=== PATIENT | female | born 1970 | race Caucasian/White ===

== ENCOUNTER 2017-09-27 10:41 | Emergency (ER) | payer OTHER, MEDICARE ==
[~2017-09-27] VITALS: Ht 147.3 cm; Wt 62.1 kg
[~2017-09-27 10:41] MED LIST: FLUOXETINE HCL20 M3 PO; KEPPRA750 M1 PO; OXCARBAZEPINE300 M1 PO; OXYCODONE-ACET1 EAC1 PO; REGLAN10 M1 PO; ZOFRAN ODT4 M1 SL
[2017-09-27 12:11] LABS: ABSOLUTE BASOPHIL COUNT 0.1 /CUMM (0.0-0.2); ABSOLUTE EOSINOPHIL COUNT 0 /CUMM (0.0-0.7); ABSOLUTE GRANULOCYTE CT 9.1 /CUMM (1.4-6.5); ABSOLUTE LYMPH COUNT 2.6 /CUMM (1.2-3.4); ABSOLUTE MONOCYTE COUNT 0.7 /CUMM (0.10-0.60); BASOPHIL % 0.4 % (0.0-2.0); EOSINOPHIL % 0.1 % (0-5); GRANULOCYTE % 72.9 % (42.2-75.2); HEMATOCRIT 44.9 % (37-47); MEAN CORPUSCULAR HGB CONC 33.4 G/DL (33.0-37.0); MEAN CORPUSCULAR VOLUME 89.9 FL (81.0-99.0); MEAN PLATELET VOLUME 8.5 FL (7.4-10.4); PLATELET COUNT 340 /CUMM (130-400); RBC DISTRIBUTION WIDTH 14.6 % (11.5-14.5); WHITE BLOOD CELL COUNT 12.6 /CUMM (4.8-10.8)
--- NOTE | 2017-09-27 12:16 | ED GI/GU/ABDOMINAL COMPLAINT ---
History of Present Illness General Chief Complaint: Abdominal Pain/Flank Pain Stated Complaint: ABD PAIN HX COLITIS Source: patient Exam Limitations: no limitations Vital Signs & Intake/Output Vital Signs & Intake/Output Vital Signs Date Time Temp Pulse Resp B/P B/P Pulse O2 O2 Flow FiO2 Mean Ox Delivery Rate 09/27 1503 98.6 75 20 138/80 98 Room Air 09/27 1244 98.5 90 20 140/80 98 Room Air 09/27 1050 95.9 123 20 145/89 99 Room Air Allergies Coded Allergies: ibuprofen (Severe, THROAT CLOSURE, HIVES 04/09/17) metoclopramide (From REGLAN) (Severe, ANGIODEMA 09/27/17) cephalexin (From KEFLEX) (Intermediate, RASH, SWELLING 09/27/17) venom-honey bee (Intermediate, HIVES - HORNETS 09/27/17) amoxicillin (ANGIODEMA 09/27/17) mushroom (THROAT CLOSURE 09/27/17) venom-wasp (UNKNOWN 04/09/17) Reconcile Medications Duloxetine HCl 30 MG CAPSULE.DR 1 CAP PO DAILY MIGRAINES (Reported) Levetiracetam (Keppra) 750 MG TABLET 1 TAB PO BID SEIZURES (Reported) Methocarbamol (Robaxin-750) 750 MG TABLET 1 TAB PO QHS MUSCLE SPASMS ( Reported) Metronidazole (Flagyl) 500 MG TABLET 1 TAB PO BID colitis Ondansetron (Ondansetron Odt) 4 MG TAB.RAPDIS 1 TAB SL BID PRN N/V (Reported) Ondansetron (Zofran Odt) 4 MG TAB.RAPDIS 1 TAB SL TID nausea Oxcarbazepine 300 MG TABLET 1.5 TAB PO BID SEIZURES (Reported) Oxycodone HCl/Acetaminophen (Oxycodone-Acetaminophen 10-325) 10 MG-325 MG TABLET 1 TAB PO Q4-6H PRN PAIN -MAX OF 5 TABS A DAY (Reported) Oxycodone HCl/Acetaminophen (Percocet 5-325 MG Tablet) 5 MG-325 MG TABLET 1 TAB PO BID Pain Triage Note: C/O LOWER ABDOMINAL PAIN WITH NAUSEA, VOMITING AND DIARREA X 7D DAYS. PMH: COLITIS Triage Nurses Notes Reviewed? yes ? N Is pt currently ? No HPI: 46-year-old female presents emergency department complaining of lower abdominal pain. Symptoms started about 1 week ago. She has been having watery, nonbloody diarrhea. She has been having frequent bouts per day. States it is starting to be mucus colored. Patient does report a history of ulcerative colitis diagnosed last year. She has had a previous cholecystectomy and appendectomy. She has not had any fevers or chills. She has been nauseous and has had decreased intake secondary to the nausea. She denies any associated chest pain or shortness of breath. No sick contacts at home. No recent travel. No recent antibiotic use. She has an appointment with her GI doctor scheduled for the of this month. Patient also has a seizure history but has been taking her medications as prescribed and denies any current seizure activity. No EtOH use. (Timothy Huynh PA-C) Past History Travel History Traveled to [place] past 21 day No Medical History Any Pertinent Medical History? none Neurological: migraine, seizure, fibromialgia Cardiovascular: NONE Gastrointestinal: colitis, irritable bowel syndrome Musculoskeletal: degen joint disease, fibromyalgia Blood Disorders: NONE Cancer(s): NONE HEALTH EDUCATION AIDE/Reproductive: NONE Surgical History Surgical History: non-contributory Psychosocial History Who do you live with Spouse Services at Home None What is your primary language Urdu Tobacco Use: Quit >30 days ago ETOH Use: occasional use Family History Hx Contributory? No (Timothy Huynh PA-C) Review of Systems Review of Systems Constitutional: Reports: see HPI. EENTM: Reports: no symptoms. Respiratory: Reports: no symptoms. Cardiovascular: Reports: no symptoms. GI: Reports: see HPI. Genitourinary: Reports: no symptoms. Musculoskeletal: Reports: no symptoms. Skin: Reports: no symptoms. Neurological/Psychological: Reports: no symptoms. All Other Systems: Reviewed and Negative (Timothy Huynh PA-C) Physical Exam Physical Exam General Appearance: well developed/nourished, mild distress Head: atraumatic, normal appearance Eyes: Bilateral: normal appearance. Ears, Nose, Throat, Mouth: moist mucous membrane Neck: supple Respiratory: normal breath sounds, no respiratory distress, quiet respiration Cardiovascular: regular rate/rhythm Gastrointestinal: BS normal, soft, mild TTP b/l lower quadrants without rebound or guarding. Non distended, no masses, no organomegaly. No rashes. Extremities: normal range of motion Skin: intact, normal color, warm/dry Core Measures ACS in differential dx? No Sepsis Present: No Sepsis Focused Exam Completed? No (Lino SEGOVIA,Timothy) Progress Differential Diagnosis: biliary colic, bowel obstruction, diverticulitis, ectopic , endometritis, gastritis, hemorrhoids, ischemic bowel, inflamm bowel dis, kidney stone, ovarian cyst, ovarian torsion, pancreatitis, PID/ cervicitis, SBO, UTI/pyelo Plan of Care: Orders Procedure Date/time Status URINALYSIS 09/27 115 Complete LIPASE 09/27 115 Complete COMPREHENSIVE METABOLIC PANEL 09/27 115 Complete CBC WITHOUT DIFFERENTIAL 09/27 115 Complete Laboratory Tests 09/27/17 1255: Urinalysis LIGHT H, Urine Color PATRICIO, Urine Clarity HAZY H, Urine pH 6.0, Ur Specific [place] 1.025, Urine Protein 100 H, Urine Ketones >=80, Urine Nitrite NEG, Urine Bilirubin POS@ICTO H, Urine Urobilinogen 1.0, Ur Leukocyte Esterase NEG, Ur Microscopic SEDIMENT EXAMINED, Urine RBC 1-3, Urine WBC 3-5 H, Ur Epithelial Cells MANY H, Urine Bacteria MOD H, Hyaline Casts 1-3 H, Urine Mucus MANY H, Urine Hemoglobin TRACE-INTACT, Urine Glucose NEG 09/27/17 1150: Anion Gap 15, Estimated GFR > 60, BUN/Creatinine Ratio 16.3, Glucose 94, Calcium 10.2, Total Bilirubin 0.8, AST 34, ALT 41, Alkaline Phosphatase 96, Total Protein 8.3 H, Albumin 4.9, Globulin 3.4, Albumin/Globulin Ratio 1.4, Lipase 730 H, CBC w Diff NO MAN DIFF REQ, RBC 5.00, MCV 89.9, MCH 30.0, MCHC 33.4, RDW 14.6 H, MPV 8.5, Gran % 72.9, Lymphocytes % 20.9, Monocytes % 5.7, Eosinophils % 0.1, Basophils % 0.4, Absolute Granulocytes 9.1 H, Absolute Lymphocytes 2.6, Absolute Monocytes 0.7 H, Absolute Eosinophils 0, Absolute Basophils 0.1 Diagnostic Imaging: Viewed by Me: CT Scan. Discussed w/RAD: CT Scan. Radiology Impression: PATIENT: ALEC MCKENNA PRESENT AGE: 46 PATIENT ACCOUNT NO: [id number] : 70 LOCATION: ER ORDERING PHYSICIAN: Timothy Huynh PA-C SERVICE DATE: 09/27/17-1213 EXAM TYPE: CAT - CT ABD & PELVIS W IV CONTRAST EXAMINATION: CT ABDOMEN AND PELVIS WITH CONTRAST CLINICAL INFORMATION: Diffuse abdominal pain, rebound, guarding COMPARISON: CT 08/27/2017 TECHNIQUE: Multidetector volumetric imaging was performed of the abdomen and pelvis following IV administration of 95 mL of Optiray 320 intravenous contrast. Sagittal and coronal reformatted images were obtained on the technologist's workstation. DLP: 251 mGy-cm FINDINGS: LUNG BASES: The visualized lung bases are unremarkable. LIVER, GALLBLADDER, AND BILIARY TREE: The liver enhances homogeneously. Stable small hypodense lesion within segment 4A of the liver measuring 9 mm most consistent with a cyst. Gallbladder is surgically absent. PANCREAS: Unremarkable. SPLEEN: Unremarkable. ADRENAL GLANDS: Unremarkable. KIDNEYS AND URETERS: The kidneys are normal in size, shape, and attenuation. No hydronephrosis, hydroureter, or calculi seen. No perinephric stranding. BLADDER: Unremarkable. GASTROINTESTINAL TRACT: A surgical anastomosis is identified in the right lower quadrant, possibly from previous appendectomy. There are no dilated loops of small or large bowel. No intra-abdominal free air or free fluid. ABDOMINAL WALL: No significant hernia is appreciated. LYMPH NODES : Normal. VASCULAR: Unremarkable. PELVIC VISCERA: Uterus appears surgically absent. No adnexal masses. Small follicles are present within both ovaries. A hypodense structure within the right ovary measures 8 mm. These are within normal limits. OSSEOUS STRUCTURES: No acute findings. IMPRESSION: 1. No acute intra-abdominal or pelvic findings. 2. Stable postsurgical changes in the right lower quadrant. 3. Status post cholecystectomy. DICTATED BY: Pam Andres MD DATE/TIME DICTATED:09/27/171439 TEST DRILLER:NOÉ DATE/TIME TRANSCRIBED:09/27/171439 CONFIDENTIAL, DO NOT COPY WITHOUT APPROPRIATE AUTHORIZATION. <Electronically signed in Other Vendor System> SIGNED BY: Pam Andres MD 09/27/17 3087 Initial ED EKG: none Comments: Patient is a well-appearing 46-year-old female who is presenting with bilateral lower quadrant abdominal pain for the past week associated with diarrhea and nausea. Diarrhea is nonbloody. She does have a history of ulcerative colitis and is scheduled to see her GI doctor later this month her symptoms have been acting up. On my exam she does have mild tenderness to palpation in the bilateral lower quadrants. Left is worse than right. She otherwise appears well on exam. She is afebrile. Her lab work is overall nonactionable, slightly elevated lipase. Urinalysis not indicative of infection. She has no epigastric pain to palpation. She has had her gallbladder removed and appendix removed. She does not use EtOH. Her CT scan showed no acute findings. I have low concern for pancreatitis, appendicitis, choledocholithiasis, SBO. Patient was hydrated with IV fluids. She was given IV Tylenol, morphine and Zofran with significant relief of her symptoms. We will start her on Flagyl to cover for infection, short course of Percocet for breakthrough pain and Zofran for nausea. Encourage her to follow-up with her GI doctor this week. Return to emergency department immediately if she develops any new or worsening symptoms. She is in agreement with plan of care. (Lino SEGOVIA,Timothy) Departure Departure Time of Disposition: 1507 Disposition: HOME OR SELF CARE Condition: Stable Clinical Impression Primary Impression: Abdominal pain Secondary Impressions: Nausea Referrals: Erick PINK,Naomy Kovacs (PCP/Family) Additional Instructions: Take Percocet sparingly as needed for pain. Use Zofran as needed for nausea and vomiting. Eat a bland diet for at least 48 hours. Drink plenty of fluids. Follow up with your GI doctor and PCP this week. Return to ED with new or worsening symptoms. Please go over all results of today's visit with your primary care doctor. Contact your primary care doctor to let them know you were here in the emergency room. There may be nonspecific findings which may not be related to your visit today here in the emergency room but may require further evaluation and chronic monitoring by your primary care doctor. If you had a laceration today the chance of foreign body always remains. You should follow-up with your primary care doctor for recheck in 3-5 days for a wound check. If you had an x-ray done there is a chance that a fracture could have been missed on initial read and you should follow-up with your primary care doctor for repeat x-rays if symptoms persist. If your blood pressure was elevated here in the emergency room please have rechecked by [facility] primary care doctor within the next 48. If you were prescribed a narcotic here in the emergency room or any type of controlled substances you're not allowed to drive while taking this medication or operate any type of heavy machinery. Narcotics can make you feel lightheaded dizziness nausea and can cause constipation. You may need to picking supervisor a stool softener. Thank you for choosing [facility] emergency room. Please return to the emergency room immediately if you have any other concerns worsening of symptoms. Departure Forms: Customer Survey General Discharge Information Prescriptions: Current Visit Scripts Metronidazole (Flagyl) 1 TAB PO BID #14 TAB Ondansetron (Zofran Odt) 1 TAB SL TID #15 TAB Oxycodone HCl/Acetaminophen (Percocet 5-325 MG Tablet) 1 TAB PO BID #10 TAB (Timothy Huynh PA-C) PA/DRY BOX OPERATOR Co-Sign Statement Statement: ED Attending supervision documentation- [X] I saw and evaluated the patient. I have also reviewed all the pertinent lab results and diagnostic results. I agree with the findings and the plan of care as documented in the PA's/DRY BOX OPERATOR's documentation. [X] I have reviewed the ED Record and agree with the PA's/DRY BOX OPERATOR's documentation. [] Additions or exceptions (if any) to the PAs/DRY BOX OPERATOR's note and plan are summarized below: [] (Edwin PINK,Varinder Goncalves)
[2017-09-27] MEDS ORDERED: ROBAXIN-750750 M1 PO (13:18)
[2017-09-27] MEDS ORDERED: DULOXETINE HCL30 MG PO (13:18)
[2017-09-27] MEDS ORDERED: ONDANSETRON ODT4 M1 SL (13:20)
--- NOTE | 2017-09-27 14:50 | CT SCAN REPORT ---
EXAMINATION: CT ABDOMEN AND PELVIS WITH CONTRAST CLINICAL INFORMATION: Diffuse abdominal pain, rebound, guarding COMPARISON: CT 08/27/2017 TECHNIQUE: Multidetector volumetric imaging was performed of the abdomen and pelvis following IV administration of 95 mL of Optiray 320 intravenous contrast. Sagittal and coronal reformatted images were obtained on the technologist's workstation. DLP: 251 mGy-cm FINDINGS: LUNG BASES: The visualized lung bases are unremarkable. LIVER, GALLBLADDER, AND BILIARY TREE: The liver enhances homogeneously. Stable small hypodense lesion within segment 4A of the liver measuring 9 mm most consistent with a cyst. Gallbladder is surgically absent. PANCREAS: Unremarkable. SPLEEN: Unremarkable. ADRENAL GLANDS: Unremarkable. KIDNEYS AND URETERS: The kidneys are normal in size, shape, and attenuation. No hydronephrosis, hydroureter, or calculi seen. No perinephric stranding. BLADDER: Unremarkable. GASTROINTESTINAL TRACT: A surgical anastomosis is identified in the right lower quadrant, possibly from previous appendectomy. There are no dilated loops of small or large bowel. No intra-abdominal free air or free fluid. ABDOMINAL WALL: No significant hernia is appreciated. LYMPH NODES: Normal. VASCULAR: Unremarkable. PELVIC VISCERA: Uterus appears surgically absent. No adnexal masses. Small follicles are present within both ovaries. A hypodense structure within the right ovary measures 8 mm. These are within normal limits. OSSEOUS STRUCTURES: No acute findings. IMPRESSION: 1. No acute intra-abdominal or pelvic findings. 2. Stable postsurgical changes in the right lower quadrant. 3. Status post cholecystectomy.
[2017-09-27 15:03] VITALS: BP 138/80
[2017-09-27] MEDS ORDERED: FLAGYL500 MG PO (15:14)
[2017-09-27] MEDS ORDERED: PERCOCET 5-3251 EACH PO (15:14)
[2017-09-27] MEDS ORDERED: ZOFRAN ODT4 M1 SL (15:14)
[2017-09-30] MEDS ORDERED: PROMETHAZINE HC25 M3 PO (18:23)
[2017-09-30] MEDS ORDERED: DICYCLOMINE HCL10 M1 PO (18:23)
== END 2017-09-27 15:42 ==
LOC: ERH 10:41
PROVIDERS: Physician Assistant
DX: R11.2 Nausea with vomiting, unspecified (principal); R10.30 Lower abdominal pain, unspecified
CPT/HCPCS: 74177; 81001; 96374; 96375; 96376; J0131; J2405